=== PATIENT | male | born 1955 | race Caucasian/White ===

== ENCOUNTER 2019-06-05 08:31 | Inpatient (IN) | payer MEDICAID ==
[2019-05-31 11:40] LABS: BASOPHILS # (AUTO) 0.1 X10'3 (0-0.2); BASOPHILS % (AUTO) 0.9 % (0-1); EOSINOPHILS # (AUTO) 0.1 X10'3 (0-0.9); EOSINOPHILS % (AUTO) 1.8 % (0-6); HEMOGLOBIN 16.5 g/dl (14.0-17.9); LYMPHOCYTES # (AUTO) 1.4 X10'3 (1.1-4.8); MONOCYTES # (AUTO) 0.6 X10'3 (0-0.9)
[2019-05-31 11:42] LABS: HEMATOCRIT 47.3 % (42.0-52.0); LYMPHOCYTES % (AUTO) 24.9 % (21-51); MEAN CORPUSCULAR HEMOGLOBIN 29.7 PG (27.0-31.0); MEAN CORPUSCULAR HGB CONC 34.9 g/dL (33.0-36.5); MEAN CORPUSCULAR VOLUME 85.2 FL (78-98); MONOCYTES % (AUTO) 9.9 % (2-12); NEUTROPHILS # (AUTO) 3.5 X10'3 (1.8-7.7); NEUTROPHILS % (AUTO) 62.5 % (42-75); PLATELET COUNT 202 X10'3 (140-440); RED BLOOD COUNT 5.56 X10'6 (4.70-6.10); RED CELL DISTRIBUTION WIDTH 13.9 % (11.5-14.5); WHITE BLOOD COUNT 5.6 X10'3 (4.5-11.0)
[2019-05-31 11:50] LABS: PARTIAL THROMBOPLASTIN TIME 30 SECONDS (22-32)
[2019-05-31 12:04] LABS: ALANINE AMINOTRANSFERASE 31 U/L (12-78); ALBUMIN 3.9 G/DL (3.4-5.0); ALBUMIN/GLOBULIN RATIO 1.2 (1.1-1.5); ALKALINE PHOSPHATASE 94 IU/L (46-116); ANION GAP 9 (8-16); ASPARTATE AMINO TRANSFERASE 21 U/L (10-37); BILIRUBIN,TOTAL 0.4 MG/DL (0.1-1.0); BLOOD UREA NITROGEN 15 MG/DL (7-18); BUN/CREATININE RATIO 14.3 (5.4-32.0); CALCIUM 8.5 MG/DL (8.5-10.1); CHLORIDE 105 MMOL/L (99-107); CREATININE 1.05 MG/DL (0.60-1.10); GLUCOSE 122 MG/DL (70-104); POTASSIUM 3.9 MMOL/L (3.5-5.1); SODIUM 139 MMOL/L (135-145); TOTAL CARBON DIOXIDE 25.1 MMOL/L (24-32); TOTAL PROTEIN 7.1 G/DL (6.4-8.2); eGFR 72 ML/MIN
[~2019-06-05] VITALS: Ht 172.7 cm; Wt 81.5 kg
[2019-06-05] VITALS (14 sets, daily range): BP systolic 122–150; BP diastolic 70–101
[~2019-06-05 08:31] MED LIST: LIDOcaine 2% (20 mg/ml) 5ml cardiac syringe ONE; albumin (Human) 5% 250ml BOTTLE IV ONE; aminocaproic acid 250 MG/1 ML inj. ONE; methylPREDNISolone sod. succ. 500mg inj ONE; papaverine 30 mg/ml 2ml inj. ONE; phenylephrine 10mg/ml inj. ONE; sodium bicarbonate (8.4%) 1 mEq/ml syringe ONE
[2019-06-05] MEDS ORDERED: nitroGLYCERIN 0.4mg SUBLingual tab SL PRN (08:50)
[2019-06-05] MEDS ORDERED: LORazepam 0.5 MG tablet PO PRN (08:50)
[2019-06-05] MEDS ORDERED: diphenhydrAMINE 25mg capsule PO PRN ×2 (08:50→15:15)
[2019-06-05] MEDS ORDERED: ENAL10TA78 PO (08:53)
[2019-06-05] MEDS ORDERED: ATOR40TA PO (08:53)
[2019-06-05] MEDS ORDERED: OMEP40CA13 PO (08:53)
[2019-06-05] MEDS: normal saline 1,000 ML IV SCH ×2 (09:35→18:50)
[2019-06-05] MEDS ORDERED: LIDOcaine 1% (10mg/ml)w/preservative injection 20ml MDV ONE (10:34)
[2019-06-05] MEDS ORDERED: midazolam 2 mg/2 ml injection ONE (10:34)
[2019-06-05] MEDS ORDERED: iohexol 350MG/ML 100ml bottle IV ONE (10:34)
[2019-06-05] MEDS ORDERED: fentaNYL/PF 50MCG/1 ML 2ML syringe ONE (10:34)
[2019-06-05] MEDS ORDERED: iohexol 350 MG/ML 50ML vial IV ONE (10:34)
[2019-06-05] MEDS ORDERED: OXAZEpam 15mg capsule PO PRN (12:05)
[2019-06-05] MEDS ORDERED: acetaminophen 325mg tablet PO PRN (12:05)
[2019-06-05] MEDS ORDERED: HYDROcodone/acetaminophen 10/325mg tab PO PRN (12:05)
[2019-06-05] MEDS ORDERED: ondansetron/PF 4mg/2ml inj IV PRN ×2 (12:05→15:15)
[2019-06-05] MEDS ORDERED: HYDROcodone/acetaminophen 5mg/325mg tablet PO PRN (12:05)
[2019-06-05] MEDS ORDERED: proCHLORperazine 10 MG/2 ml inj IV PRN (12:05)
[2019-06-05] MEDS ORDERED: potassium Cl 20 mEq SR tablet PO PRN (15:15)
[2019-06-05] MEDS ORDERED: magnesium 4gm in 100ml NS 100 ML IV PRN (15:15)
[2019-06-05] MEDS ORDERED: magnesium 2GM in 50ml NS 50 ML IV PRN (15:15)
[2019-06-05] MEDS ORDERED: MESSAGE TO NURSING PO ONE (15:15)
[2019-06-05] MEDS ORDERED: potassium Cl 20mEq/100mL bag 100 ML IV PRN (15:15)
--- NOTE | 2019-06-05 15:30 | NUR ---
Patient in room MED 311. I have received report from RN from short stay and had the opportunity to ask questions and assume patient care.
[2019-06-05 16:38] LABS: CLARITY,URINE CLEAR (Clear); COLOR,URINE YELLOW (Yellow); GLUCOSE, URINE NEGATIVE (Neg); KETONES,URINE NEGATIVE (Neg); LEUKOCYTE ESTERASE ,URINE NEGATIVE (Neg); NITRITES, URINE NEGATIVE (Neg); OCCULT BLOOD,URINE NEGATIVE (Neg); PROTEIN,URINE NEGATIVE (Neg); UROBILINOGEN,URINE 0.2 E.U/dL (0.2-1.0)
[2019-06-05 16:39] LABS: UA COLLECTION TYPE NON-SPECIFIED
[2019-06-05 17:40] LABS: ALBUMIN 3.6 G/DL (3.4-5.0); ANION GAP 7 (8-16); BLOOD UREA NITROGEN 16 MG/DL (7-18); BUN/CREATININE RATIO 16.5 (5.4-32.0); CALCIUM 8.6 MG/DL (8.5-10.1); CHLORIDE 106 MMOL/L (99-107); CREATININE 0.97 MG/DL (0.60-1.10); GLUCOSE 88 MG/DL (70-104); MAGNESIUM 2.1 MG/DL (1.5-2.4); POTASSIUM 3.6 MMOL/L (3.5-5.1); SODIUM 141 MMOL/L (135-145); TOTAL CARBON DIOXIDE 27.9 MMOL/L (24-32); eGFR 78 ML/MIN
[2019-06-05 17:41] LABS: HEMATOCRIT 45.8 % (42.0-52.0); HEMOGLOBIN 15.6 g/dl (14.0-17.9); MEAN CORPUSCULAR HEMOGLOBIN 29.3 PG (27.0-31.0); MEAN PLATELET VOLUME 8.9 FL (7.4-10.4); PLATELET COUNT 188 X10'3 (140-440); RED BLOOD COUNT 5.33 X10'6 (4.70-6.10); RED CELL DISTRIBUTION WIDTH 14.3 % (11.5-14.5); WHITE BLOOD COUNT 5.8 X10'3 (4.5-11.0)
[2019-06-05 17:43] LABS: HEMOGLOBIN A1C 5.9 % (4.5-6.2)
[2019-06-05 17:44] LABS: PARTIAL THROMBOPLASTIN TIME 29 SECONDS (22-32)
[2019-06-05 18:00] LABS: ABG BASE EXCESS 1.8 mmol/L (-2.0-3.0); ABG HCO3 25.2 mmol/L (22.0-26.0); ABG PCO2 (T) 36.4 mmHg (35.0-45.0); ABG PH (T) 7.459 (7.350-7.450); ABG PO2 (T) 84.8 mmHg (83-108); ALLEN'S TEST Positive; FCOHb 0.7 % (0.5-1.5); FMetHb 0.2 % (0.3-1.12); FO2Hb 96.1 % (94-100); TOTAL HEMOGLOBIN 16.5 G/dl (14.0-17.9)
--- NOTE | 2019-06-05 18:00 | NUR ---
Patient in room MED 311. I have received report from Hetal ENRIQUEZ and had the opportunity to ask questions and assume patient care.
[2019-06-05] MEDS ORDERED: mupirocin 2% nasal ointment 1gm UD NS SCH (20:00)
[2019-06-05] MEDS: pantoprazole 40mg Tablet.DR PO SCH (22:07)
[2019-06-05] MEDS: metoprolol tartrate 12.5mg (1/2 tablet) PO SCH (22:09)
[2019-06-06 02:00] VITALS: BP 135/94
[2019-06-06] MEDS: normal saline 1,000 ML IV SCH (04:50)
[2019-06-06] MEDS ORDERED: MESSAGE TO NURSING PO ONE (05:30)
[2019-06-06 06:00] VITALS: BP 122/86
--- NOTE | 2019-06-06 06:28 | NUR ---
Problems reprioritized. Patient report given, questions answered & plan of care reviewed with Anabel Fisher .
--- NOTE | 2019-06-06 06:30 | NUR ---
Patient in room MED 311. I have received report from Jone ENRIQUEZ and had the opportunity to ask questions and assume patient care.
[2019-06-06] MEDS: lisinopril 20mg tablet PO SCH (09:29)
[2019-06-06] MEDS: metoprolol tartrate 12.5mg (1/2 tablet) PO SCH ×2 (09:29→19:03)
[2019-06-06] MEDS: atorvastatin 20mg tablet PO SCH (09:30)
[2019-06-06 11:00] VITALS: BP 134/87
[2019-06-06] MEDS ORDERED: dextrose 50%-water 50ml dispensing syringe IV PRN (13:20)
[2019-06-06] MEDS ORDERED: insulin glargine (Lantus) pen - multi-dose SQ PRN (13:20)
[2019-06-06] MEDS ORDERED: vancomycin/NS 1 GM ADD-VANTAGE 250 ML IV ONE (13:20)
[2019-06-06] MEDS ORDERED: cefazolin/dext.iso 2gm/100ml 100 ML IV ONE (13:25)
[2019-06-06 18:00] VITALS: BP 128/85
--- NOTE | 2019-06-06 18:41 | NUR ---
Patient in room MED 311. I have received report from Anabel Fisher and had the opportunity to ask questions and assume patient care.
[2019-06-06] MEDS ORDERED: ringers solution, lacted 1,000 ML IV ONE (18:57)
[2019-06-06] MEDS: pantoprazole 40mg Tablet.DR PO SCH (19:03)
[2019-06-06 22:00] VITALS: BP 126/93
[2019-06-07] VITALS (18 sets, daily range): BP systolic 92–150; BP diastolic 52–91
[2019-06-07] MEDS ORDERED: MESSAGE TO NURSING PO ONE ×3 (01:30→05:30)
[2019-06-07] MEDS ORDERED: MALTODEXTRIN/FRUCTOSE 0.68 KCAL/ML LIQUID 296ML BOTTLE PO ONE (03:30)
[2019-06-07] MEDS ORDERED: mupirocin 2% nasal ointment 1gm UD NS SCH (05:00)
[2019-06-07 05:26] LABS: BASOPHILS % (AUTO) 0.4 % (0-1); EOSINOPHILS # (AUTO) 0.2 X10'3 (0-0.9); EOSINOPHILS % (AUTO) 1.6 % (0-6); HEMATOCRIT 49.3 % (42.0-52.0); LYMPHOCYTES # (AUTO) 1.9 X10'3 (1.1-4.8); LYMPHOCYTES % (AUTO) 19.1 % (21-51); MEAN CORPUSCULAR HEMOGLOBIN 29.5 PG (27.0-31.0); MEAN CORPUSCULAR HGB CONC 34.5 g/dL (33.0-36.5); MEAN CORPUSCULAR VOLUME 85.5 FL (78-98); MEAN PLATELET VOLUME 8.6 FL (7.4-10.4); MONOCYTES # (AUTO) 1.1 X10'3 (0-0.9); NEUTROPHILS # (AUTO) 6.8 X10'3 (1.8-7.7); NEUTROPHILS % (AUTO) 67.9 % (42-75); PLATELET COUNT 198 X10'3 (140-440); RED BLOOD COUNT 5.76 X10'6 (4.70-6.10); RED CELL DISTRIBUTION WIDTH 14.2 % (11.5-14.5); WHITE BLOOD COUNT 10.1 X10'3 (4.5-11.0)
[2019-06-07] MEDS ORDERED: gabapentin 400mg capsule PO ONE (05:30)
[2019-06-07 05:38] LABS: ALBUMIN 3.9 G/DL (3.4-5.0); ANION GAP 10 (8-16); BLOOD UREA NITROGEN 16 MG/DL (7-18); BUN/CREATININE RATIO 15.2 (5.4-32.0); CALCIUM 8.8 MG/DL (8.5-10.1); CHLORIDE 105 MMOL/L (99-107); CREATININE 1.05 MG/DL (0.60-1.10); GLUCOSE 103 MG/DL (70-104); POTASSIUM 3.8 MMOL/L (3.5-5.1); SODIUM 140 MMOL/L (135-145); TOTAL CARBON DIOXIDE 24.6 MMOL/L (24-32); eGFR 72 ML/MIN
[2019-06-07] MEDS ORDERED: famotidine 10mg tablet PO ONE (06:00)
[2019-06-07] MEDS ORDERED: LORazepam 2 mg/ml vial IV ONE (06:00)
--- NOTE | 2019-06-07 06:34 | NUR ---
Patient in room MED 311. I have received report from ZOE Becerril and had the opportunity to ask questions and assume patient care.
[2019-06-07] MEDS ORDERED: ROPIVAcaine 0.5% (5mg/ml) 30ml vial ONE (06:35)
--- NOTE | 2019-06-07 06:35 | NUR ---
Problems reprioritized. Patient report given, questions answered & plan of care reviewed with Reta ENRIQUEZ.
[2019-06-07] MEDS ORDERED: midazolam 2 mg/2 ml injection ONE (06:43)
[2019-06-07] MEDS ORDERED: SUFENTANIL CITRATE 50 MCG/ML 2ml ampule IV ONE (06:43)
[2019-06-07] MEDS: lisinopril 20mg tablet PO SCH (08:00)
[2019-06-07] MEDS ORDERED: DOPamine/D5W 400mg/250ml bag IV ONE (08:00)
[2019-06-07] MEDS ORDERED: nitroGLYCERIN in D5W 50mg/250ml (Tridil) infusion IV ONE (08:00)
[2019-06-07] MEDS ORDERED: protamine sulf. 10mg/ml inj. IV ONE (08:00)
[2019-06-07] MEDS ORDERED: isoflurane 100ml inhalation liquid IH ONE (08:00)
[2019-06-07] MEDS: atorvastatin 20mg tablet PO SCH (08:00)
[2019-06-07] MEDS: metoprolol tartrate 12.5mg (1/2 tablet) PO SCH (08:00)
[2019-06-07 08:45] LABS: ABG BASE EXCESS -1.6 mmol/L (-2.0-3.0); ABG OXYGEN SATURATION 99.6 % (95-98); ABG PCO2 43.3 mmHg (35.0-45.0); ABG PH 7.361 (7.350-7.450); ABG PO2 444.8 mmHg (60.0-100.0); CL (ABG) 105 mmol/L (99-107); FCOHb 0.9 % (0.5-1.5); FMetHb 0.5 % (0.3-1.12); FO2Hb 98.2 % (94-100); GLUCOSE (ABG) 74 mg/dl (70-104); IONIZED CA (ABG) 1.15 mmol/L (1.03-1.32); NA (ABG) 139 mmol/L (135-145); TOTAL HEMOGLOBIN 16.1 G/dl (14.0-17.9)
--- NOTE | 2019-06-07 09:22 | NUR ---
Problems reprioritized. Patient report given, questions answered & plan of care reviewed with Alberta CUNNINGHAM RN.
[2019-06-07 09:50] LABS: ABG BASE EXCESS -0.7 mmol/L (-2.0-3.0); ABG HCO3 24.1 mmol/L (22.0-26.0); ABG OXYGEN SATURATION 99.4 % (95-98); ABG PCO2 40.1 mmHg (35.0-45.0); ABG PH 7.396 (7.350-7.450); ABG PO2 276.1 mmHg (60.0-100.0); CL (ABG) 102 mmol/L (99-107); FCOHb 0.8 % (0.5-1.5); FMetHb 0.3 % (0.3-1.12); FO2Hb 98.3 % (94-100); GLUCOSE (ABG) 83 mg/dl (70-104); IONIZED CA (ABG) 1.01 mmol/L (1.03-1.32); K (ABG) 5.2 mmol/L (3.3-5.1); NA (ABG) 132 mmol/L (135-145); TOTAL HEMOGLOBIN 11.9 G/dl (14.0-17.9)
[2019-06-07] MEDS ORDERED: ipratropium/albuterol 3ml nebule IH PRN (09:55)
[2019-06-07 10:00] LABS: ABG BASE EXCESS VENOUS -0.4 mmol/L; ABG HCO3 VENOUS 25.1 mmol/L; ABG PO2 VENOUS 46.4 mmHg; CL (ABG) 102 mmol/L (99-107); FCOHb VENOUS 1.3 %; FHHb VENOUS 17.5 %; FMetHb VENOUS 0.1 %; FO2Hb VENOUS 81.1 %; GLUCOSE (ABG) 88 mg/dl (70-104); IONIZED CA (ABG) 1.04 mmol/L (1.03-1.32); K (ABG) 5.5 mmol/L (3.3-5.1); NA (ABG) 133 mmol/L (135-145); TOTAL HEMOGLOBIN 12.2 G/dl (14.0-17.9)
[2019-06-07 10:16] LABS: ABG BASE EXCESS 0.4 mmol/L (-2.0-3.0); ABG HCO3 25.2 mmol/L (22.0-26.0); ABG OXYGEN SATURATION 98.9 % (95-98); ABG PCO2 41.6 mmHg (35.0-45.0); ABG PH 7.401 (7.350-7.450); ABG PO2 191.8 mmHg (60.0-100.0); CL (ABG) 102 mmol/L (99-107); FCOHb 0.6 % (0.5-1.5); FMetHb 0.6 % (0.3-1.12); FO2Hb 97.7 % (94-100); GLUCOSE (ABG) 86 mg/dl (70-104); IONIZED CA (ABG) 1.34 mmol/L (1.03-1.32); K (ABG) 5.3 mmol/L (3.3-5.1); NA (ABG) 132 mmol/L (135-145); TOTAL HEMOGLOBIN 11.8 G/dl (14.0-17.9)
[2019-06-07] MEDS ORDERED: phenylephrine 10mg/ml inj. ONE (10:31)
[2019-06-07] MEDS ORDERED: epiNEPHrine 1 mg/ml inj ONE (10:31)
[2019-06-07] MEDS ORDERED: etomidate 2mg/ml inj. ONE (10:31)
[2019-06-07] MEDS ORDERED: esmolol inj. 10 ML IV ONE (10:31)
[2019-06-07] MEDS ORDERED: LIDOcaine 2% (20mg/ml) 5ml vial ONE (10:31)
[2019-06-07] MEDS ORDERED: rocuronium 10mg/ml inj IV ONE (10:31)
[2019-06-07] MEDS ORDERED: acetaminophen 1,000mg/100ml IV 100 ML IV ONE (10:32)
[2019-06-07 10:40] LABS: ABG BASE EXCESS VENOUS -0.4 mmol/L; ABG HCO3 VENOUS 24.7 mmol/L; ABG PCO2 VENOUS 42.3 mmHg; ABG PO2 VENOUS 58.5 mmHg; CL (ABG) 101 mmol/L (99-107); FCOHb VENOUS 0.9 %; FHHb VENOUS 10.1 %; FMetHb VENOUS 0.6 %; FO2Hb VENOUS 88.4 %; GLUCOSE (ABG) 87 mg/dl (70-104); IONIZED CA (ABG) 1.21 mmol/L (1.03-1.32); K (ABG) 5.1 mmol/L (3.3-5.1); NA (ABG) 134 mmol/L (135-145); TOTAL HEMOGLOBIN 12.9 G/dl (14.0-17.9)
[2019-06-07] MEDS ORDERED: niCARDipine-NS 40mg/200ml IVPB 200 ML IV PRN (11:11)
[2019-06-07] MEDS ORDERED: nitroGLYCERIN-Tridil 50MG/D5W 250 ML IV PRN (11:11)
[2019-06-07] MEDS ORDERED: DOPamine 400mg/D5W 250ml 250 ML IV PRN (11:11)
[2019-06-07] MEDS ORDERED: sodium chloride 0.45% 1,000 ML IV SCH (11:11)
[2019-06-07] MEDS ORDERED: Neutra Phos packet PO PRN (11:15)
[2019-06-07] MEDS ORDERED: metoclopramide 5 mg/ml inj IV PRN (11:15)
[2019-06-07] MEDS ORDERED: dextrose 50%-water 50ml dispensing syringe IV PRN (11:15)
[2019-06-07] MEDS ORDERED: HYDROcodone/acetaminophen 10/325mg tab PO PRN (11:15)
[2019-06-07] MEDS ORDERED: potassium Cl 20 mEq SR tablet PO PRN (11:15)
[2019-06-07] MEDS ORDERED: acetaminophen 325mg tablet PO PRN ×2 (11:15)
[2019-06-07] MEDS ORDERED: ondansetron/PF 4mg/2ml inj IV PRN (11:15)
[2019-06-07] MEDS ORDERED: magnesium 4gm in 100ml NS 100 ML IV PRN (11:15)
[2019-06-07] MEDS ORDERED: magnesium hydroxide 30ml (MOM) UD suspension PO PRN (11:15)
[2019-06-07] MEDS ORDERED: sodium phosphate inj. 15 MMOL in dextrose 5%-water 150 ML IV PRN (11:15)
[2019-06-07] MEDS ORDERED: morphine 4 MG/ML inj SYRINge IV PRN (11:15)
[2019-06-07] MEDS ORDERED: sodium phosphate inj. 30 MMOL in dextrose 5%-water 250 ML IV PRN (11:15)
[2019-06-07] MEDS ORDERED: pantoprazole 40 MG vial IV ONE (11:15)
[2019-06-07] MEDS ORDERED: normal saline 250ml IV soln 250 ML IV PRN (11:15)
[2019-06-07] MEDS ORDERED: insulin regular, human inj. 100 UNITS in normal saline 100ml IV soln 100 ML IV SCH ×2 (11:15)
--- NOTE | 2019-06-07 11:15 | NUR ---
Received to room 2043, accompanied by MDs and surgical crew. Placed on ventilator, to inspector filter tip, arterial line and PA line pressure monitored. Chest tubes to suction at 20 cm. Caceres cath to gravity drainage. Dressings are dry and intact. See assessment record. All vasoactive drugs are infusing via central line.
[2019-06-07 11:30] LABS: ABG BASE EXCESS -0.2 mmol/L (-2.0-3.0); ABG HCO3 24.7 mmol/L (22.0-26.0); ABG OXYGEN SATURATION 98.2 % (95-98); ABG PCO2 (T) 40.9 mmHg (35.0-45.0); ABG PH (T) 7.397 (7.350-7.450); ABG PO2 (T) 127.4 mmHg (83-108); FCOHb 0.2 % (0.5-1.5); FMetHb 0.3 % (0.3-1.12); FO2Hb 97.7 % (94-100); MINUTE VOLUME 10 L/min; PATIENT TEMPERATURE 36.8; PEEP 5 cm H2O; RESPIRATORY RATE 12 b/min; TIDAL VOLUME 700 mL; TOTAL HEMOGLOBIN 15.5 G/dl (14.0-17.9)
[2019-06-07 11:47] LABS: BASOPHILS % (AUTO) 0.2 % (0-1); EOSINOPHILS # (AUTO) 0.1 X10'3 (0-0.9); HEMATOCRIT 41.6 % (42.0-52.0); HEMOGLOBIN 14.3 g/dl (14.0-17.9); LYMPHOCYTES # (AUTO) 0.8 X10'3 (1.1-4.8); LYMPHOCYTES % (AUTO) 7.4 % (21-51); MEAN CORPUSCULAR HEMOGLOBIN 29.4 PG (27.0-31.0); MEAN CORPUSCULAR HGB CONC 34.5 g/dL (33.0-36.5); MEAN CORPUSCULAR VOLUME 85.3 FL (78-98); MEAN PLATELET VOLUME 8.5 FL (7.4-10.4); MONOCYTES # (AUTO) 0.7 X10'3 (0-0.9); MONOCYTES % (AUTO) 7.1 % (2-12); NEUTROPHILS # (AUTO) 8.6 X10'3 (1.8-7.7); NEUTROPHILS % (AUTO) 84.3 % (42-75); PLATELET COUNT 144 X10'3 (140-440); RED BLOOD COUNT 4.87 X10'6 (4.70-6.10); WHITE BLOOD COUNT 10.2 X10'3 (4.5-11.0)
[2019-06-07 12:05] LABS: ALANINE AMINOTRANSFERASE 26 U/L (12-78); ALBUMIN 3.2 G/DL (3.4-5.0); ALBUMIN/GLOBULIN RATIO 1.5 (1.1-1.5); ALKALINE PHOSPHATASE 71 IU/L (46-116); ANION GAP 6 (8-16); ASPARTATE AMINO TRANSFERASE 22 U/L (10-37); BILIRUBIN,TOTAL 1.2 MG/DL (0.1-1.0); BLOOD UREA NITROGEN 13 MG/DL (7-18); BUN/CREATININE RATIO 10.1 (5.4-32.0); CALCIUM 8.6 MG/DL (8.5-10.1); CHLORIDE 106 MMOL/L (99-107); CREATININE 1.29 MG/DL (0.60-1.10); GLUCOSE 114 MG/DL (70-104); MAGNESIUM 3.3 MG/DL (1.5-2.4); PHOSPHORUS 2.3 MG/DL (2.3-4.5); POTASSIUM 4.9 MMOL/L (3.5-5.1); SODIUM 138 MMOL/L (135-145); TOTAL CARBON DIOXIDE 25.9 MMOL/L (24-32); TOTAL PROTEIN 5.3 G/DL (6.4-8.2); eGFR 56 ML/MIN
--- NOTE | 2019-06-07 12:20 | NUR ---
Nutrition consult: Pt s/p CABG x 2 today. Pt would benefit from nutrition therapy education once stable prior to discharge. Will continue to follow. Addendum: 06/07/19 at [address] Amended: Links added.
[2019-06-07] MEDS: gabapentin 300mg capsule PO SCH ×2 (12:23→20:50)
[2019-06-07] MEDS: insulin regular, human 100 UNIT in normal saline 100ml IV soln 100 ML IV SCH ×4 (12:26→22:39)
[2019-06-07 12:31] LABS: PARTIAL THROMBOPLASTIN TIME 29 SECONDS (22-32)
[2019-06-07] MEDS: insulin Lispro (HumaLOG) vial - multi-dose SQ SCH ×2 (13:00→18:00)
[2019-06-07] MEDS: albumin (Human) 5% 250ml 250 ML IV PRN ×4 (13:22→15:37)
--- NOTE | 2019-06-07 15:30 | NUR ---
Carlos MACKEY at bedside and aware of low blood pressures and that patient has already had 3 Albumin. SBP has been in the low 100s and upper 90s and will occasionally drop to the 80s. Per Carlos MACKEY, orders to give one more Albumin (Total of 4) and if necessary, to start Levophed gtt per protocol to keep SBP >100. CI has been >3.[address] output at 150ml.
[2019-06-07] MEDS: ceFAZolin 1GM/D5W- ADD-VANTAGE 50 ML IV SCH (16:12)
[2019-06-07 17:35] LABS: BASOPHILS % (AUTO) 0.1 % (0-1); EOSINOPHILS % (AUTO) 0 % (0-6); HEMOGLOBIN 13.3 g/dl (14.0-17.9); LYMPHOCYTES # (AUTO) 0.4 X10'3 (1.1-4.8); LYMPHOCYTES % (AUTO) 3.1 % (21-51); MEAN CORPUSCULAR HEMOGLOBIN 29.3 PG (27.0-31.0); MEAN PLATELET VOLUME 8.8 FL (7.4-10.4); MONOCYTES # (AUTO) 0.6 X10'3 (0-0.9); MONOCYTES % (AUTO) 4.4 % (2-12); NEUTROPHILS # (AUTO) 12.3 X10'3 (1.8-7.7); NEUTROPHILS % (AUTO) 92.4 % (42-75); PLATELET COUNT 152 X10'3 (140-440); RED BLOOD COUNT 4.53 X10'6 (4.70-6.10); RED CELL DISTRIBUTION WIDTH 13.7 % (11.5-14.5); WHITE BLOOD COUNT 13.3 X10'3 (4.5-11.0)
[2019-06-07 17:47] LABS: ANION GAP 11 (8-16); BLOOD UREA NITROGEN 16 MG/DL (7-18); BUN/CREATININE RATIO 9.6 (5.4-32.0); CALCIUM 7.9 MG/DL (8.5-10.1); CHLORIDE 108 MMOL/L (99-107); CREATININE 1.67 MG/DL (0.60-1.10); GLUCOSE 147 MG/DL (70-104); MAGNESIUM 2.5 MG/DL (1.5-2.4); PHOSPHORUS 3.1 MG/DL (2.3-4.5); POTASSIUM 3.8 MMOL/L (3.5-5.1); SODIUM 142 MMOL/L (135-145); TOTAL CARBON DIOXIDE 23.4 MMOL/L (24-32); eGFR 42 ML/MIN
[2019-06-07] MEDS: potassium Cl 20mEq/100mL bag 100 ML IV PRN ×2 (17:57→19:34)
[2019-06-07] MEDS ORDERED: NORepinephrine 8mg/ 250ml NS 250 ML IV PRN (18:25)
--- NOTE | 2019-06-07 18:36 | NUR ---
Problems reprioritized. Patient report given, questions answered & plan of care reviewed with Carmen ENRIQUEZ.
--- NOTE | 2019-06-07 18:45 | NUR ---
184..Patient in room ICU 2043. I have received report from Bronwyn ENRIQUEZ and had the opportunity to ask questions and assume patient care.
[2019-06-07] MEDS: morphine 4 MG/ML inj SYRINge IV PRN ×2 (19:33→22:07)
[2019-06-07] MEDS: mupirocin 2% nasal ointment 1gm UD NS SCH (19:33)
[2019-06-07] MEDS: docusate sod 100mg capsule PO SCH (19:34)
[2019-06-07] MEDS ORDERED: vancomycin/NS 1 GM ADD-VANTAGE 250 ML IV SCH (20:00)
--- NOTE | 2019-06-07 21:15 | NUR ---
2000..Assessment as noted, morphine given for pain appears to be effective. Continues to fail SBT, slowly wean vent at this time.
--- NOTE | 2019-06-07 22:22 | NUR ---
2215..Medicated for complaints of pain with morphine, with good effect, ntg increased for increased bp, with good effect.
[2019-06-08] VITALS (27 sets, daily range): BP systolic 115–143; BP diastolic 56–90
[2019-06-08] MEDS: ceFAZolin 1GM/D5W- ADD-VANTAGE 50 ML IV SCH ×3 (00:06→15:42)
--- NOTE | 2019-06-08 00:18 | NUR ---
0000..Vent changed to spontaneous, no other changes noted.
[2019-06-08 01:15] LABS: ABG BASE EXCESS -0.6 mmol/L (-2.0-3.0); ABG HCO3 20.8 mmol/L (22.0-26.0); ABG OXYGEN SATURATION 97.6 % (95-98); ABG PCO2 (T) 26.4 mmHg (35.0-45.0); ABG PH (T) 7.514 (7.350-7.450); ABG PO2 (T) 92.7 mmHg (83-108); FCOHb 0.5 % (0.5-1.5); FMetHb 0.2 % (0.3-1.12); FO2Hb 96.9 % (94-100); MINUTE VOLUME 20 L/min; PATIENT TEMPERATURE 37.3; PEEP 5 cm H2O; RESPIRATORY RATE (OBSERVED) 16 b/min; TOTAL HEMOGLOBIN 13.6 G/dl (14.0-17.9)
[2019-06-08] MEDS: HYDROcodone/acetaminophen 10/325mg tab PO PRN ×2 (01:44→08:47)
--- NOTE | 2019-06-08 02:28 | NUR ---
0115..Passed weaning parameters, extubated to 4l nasal cannula, no wheezing or stridor noted, tolerated well.
[2019-06-08 03:30] LABS: BASOPHILS % (AUTO) 0.2 % (0-1); EOSINOPHILS % (AUTO) 0 % (0-6); HEMATOCRIT 36.8 % (42.0-52.0); HEMOGLOBIN 12.6 g/dl (14.0-17.9); LYMPHOCYTES # (AUTO) 0.5 X10'3 (1.1-4.8); LYMPHOCYTES % (AUTO) 3.2 % (21-51); MEAN CORPUSCULAR HEMOGLOBIN 29.8 PG (27.0-31.0); MEAN CORPUSCULAR HGB CONC 34.2 g/dL (33.0-36.5); MEAN CORPUSCULAR VOLUME 87.2 FL (78-98); MEAN PLATELET VOLUME 9.3 FL (7.4-10.4); MONOCYTES # (AUTO) 1.2 X10'3 (0-0.9); MONOCYTES % (AUTO) 7.8 % (2-12); NEUTROPHILS # (AUTO) 14.1 X10'3 (1.8-7.7); NEUTROPHILS % (AUTO) 88.8 % (42-75); PLATELET COUNT 137 X10'3 (140-440); RED BLOOD COUNT 4.22 X10'6 (4.70-6.10); WHITE BLOOD COUNT 15.8 X10'3 (4.5-11.0)
[2019-06-08 03:43] LABS: ALANINE AMINOTRANSFERASE 23 U/L (12-78); ALBUMIN 3.8 G/DL (3.4-5.0); ALBUMIN/GLOBULIN RATIO 1.9 (1.1-1.5); ALKALINE PHOSPHATASE 59 IU/L (46-116); ANION GAP 10 (8-16); ASPARTATE AMINO TRANSFERASE 27 U/L (10-37); BILIRUBIN,TOTAL 0.7 MG/DL (0.1-1.0); BLOOD UREA NITROGEN 18 MG/DL (7-18); BUN/CREATININE RATIO 13.4 (5.4-32.0); CHLORIDE 109 MMOL/L (99-107); CREATININE 1.34 MG/DL (0.60-1.10); GLUCOSE 140 MG/DL (70-104); PHOSPHORUS 2.8 MG/DL (2.3-4.5); SODIUM 142 MMOL/L (135-145); TOTAL CARBON DIOXIDE 22.9 MMOL/L (24-32); TOTAL PROTEIN 5.8 G/DL (6.4-8.2); eGFR 54 ML/MIN
[2019-06-08 03:44] LABS: PARTIAL THROMBOPLASTIN TIME 27 SECONDS (22-32)
[2019-06-08] MEDS: potassium Cl 20mEq/100mL bag 100 ML IV PRN ×2 (04:26→06:33)
[2019-06-08] MEDS: magnesium 2GM in 50ml NS 50 ML IV PRN ×2 (04:26→13:08)
--- NOTE | 2019-06-08 04:31 | NUR ---
0400..Resting quietly,eyes closed,resp easy and nonlabored, no changes noted.
--- NOTE | 2019-06-08 06:36 | NUR ---
0635..Problems reprioritized. Patient report given, questions answered & plan of care reviewed with Francisco J ENRIQUEZ.
--- NOTE | 2019-06-08 06:37 | NUR ---
Patient in room ICU 2043. I have received report from Any ENRIQUEZ and had the opportunity to ask questions and assume patient care.
[2019-06-08] MEDS ORDERED: VANCOMYCIN 1gm/H2O 200ml PB 200 ML IV SCH (08:00)
[2019-06-08] MEDS ORDERED: metoprolol tartrate 12.5mg (1/2 tablet) PO SCH (08:00)
[2019-06-08] MEDS: VANCOMYCIN 1gm/H2O 200ml PB 200 ML IV SCH ×2 (08:00→20:50)
[2019-06-08] MEDS: mupirocin 2% nasal ointment 1gm UD NS SCH ×2 (08:44→20:51)
[2019-06-08] MEDS: gabapentin 300mg capsule PO SCH ×3 (08:45→20:51)
[2019-06-08] MEDS: docusate sod 100mg capsule PO SCH ×2 (08:45→20:51)
[2019-06-08] MEDS: aspirin 325mg tablet, delayed-release (Ecotrin) PO SCH (08:47)
[2019-06-08] MEDS: atorvastatin 10mg tablet PO SCH (08:47)
[2019-06-08] MEDS: insulin Lispro (HumaLOG) vial - multi-dose SQ SCH ×3 (09:00→18:00)
[2019-06-08] MEDS ORDERED: metoprolol tartrate 25mg tablet PO ONE (09:25)
[2019-06-08 09:40] LABS: MAGNESIUM 2.3 MG/DL (1.5-2.4); POTASSIUM 4.3 MMOL/L (3.5-5.1)
--- NOTE | 2019-06-08 18:21 | NUR ---
Problems reprioritized. Patient report given, questions answered & plan of care reviewed with Nayana ENRIQUEZ.
--- NOTE | 2019-06-08 18:30 | NUR ---
Patient in room ICU 2043. I have received report from ZOE Arnett and had the opportunity to ask questions and assume patient care.
--- NOTE | 2019-06-08 19:00 | NUR ---
Pt ambulated approx 200 ft around unit with standby assistance and oxygenation of 2 LPM via NC.
[2019-06-08] MEDS: lisinopril 10 MG tablet PO SCH (20:51)
[2019-06-08] MEDS: metoprolol tartrate 50mg tablet PO SCH (20:52)
[2019-06-08 21:51] LABS: MAGNESIUM 2.6 MG/DL (1.5-2.4); POTASSIUM 4.6 MMOL/L (3.5-5.1)
[2019-06-09] VITALS (17 sets, daily range): BP systolic 105–129; BP diastolic 65–89
[2019-06-09] MEDS: ceFAZolin 1GM/D5W- ADD-VANTAGE 50 ML IV SCH (00:45)
[2019-06-09 03:07] LABS: BASOPHILS % (AUTO) 0 % (0-1); EOSINOPHILS % (AUTO) 0 % (0-6); HEMATOCRIT 38.8 % (42.0-52.0); HEMOGLOBIN 13.2 g/dl (14.0-17.9); LYMPHOCYTES # (AUTO) 0.8 X10'3 (1.1-4.8); LYMPHOCYTES % (AUTO) 4.2 % (21-51); MEAN CORPUSCULAR HEMOGLOBIN 29.6 PG (27.0-31.0); MEAN PLATELET VOLUME 9.2 FL (7.4-10.4); MONOCYTES # (AUTO) 1.7 X10'3 (0-0.9); MONOCYTES % (AUTO) 9.3 % (2-12); NEUTROPHILS # (AUTO) 16.1 X10'3 (1.8-7.7); NEUTROPHILS % (AUTO) 86.5 % (42-75); PLATELET COUNT 143 X10'3 (140-440); RED BLOOD COUNT 4.46 X10'6 (4.70-6.10); RED CELL DISTRIBUTION WIDTH 14.2 % (11.5-14.5); WHITE BLOOD COUNT 18.6 X10'3 (4.5-11.0)
[2019-06-09 03:18] LABS: ALBUMIN 3.8 G/DL (3.4-5.0); ANION GAP 3 (8-16); BLOOD UREA NITROGEN 20 MG/DL (7-18); BUN/CREATININE RATIO 20.4 (5.4-32.0); CALCIUM 8.4 MG/DL (8.5-10.1); CHLORIDE 105 MMOL/L (99-107); CREATININE 0.98 MG/DL (0.60-1.10); GLUCOSE 123 MG/DL (70-104); MAGNESIUM 2.5 MG/DL (1.5-2.4); PHOSPHORUS 3.1 MG/DL (2.3-4.5); POTASSIUM 4.8 MMOL/L (3.5-5.1); SODIUM 138 MMOL/L (135-145); TOTAL CARBON DIOXIDE 30.3 MMOL/L (24-32); eGFR 78 ML/MIN
--- NOTE | 2019-06-09 06:40 | NUR ---
Problems reprioritized. Patient report given, questions answered & plan of care reviewed with ZOE Shaw.
--- NOTE | 2019-06-09 06:51 | NUR ---
Patient in room ICU 2043. I have received report from ZOE GARCIA and had the opportunity to ask questions and assume patient care.
[2019-06-09] MEDS: mupirocin 2% nasal ointment 1gm UD NS SCH (07:22)
[2019-06-09] MEDS: docusate sod 100mg capsule PO SCH ×2 (07:22→19:17)
[2019-06-09] MEDS: aspirin 325mg tablet, delayed-release (Ecotrin) PO SCH (07:22)
[2019-06-09] MEDS: gabapentin 300mg capsule PO SCH (07:23)
[2019-06-09] MEDS: pantoprazole 40mg Tablet.DR PO SCH (07:23)
[2019-06-09] MEDS: metoprolol tartrate 50mg tablet PO SCH ×2 (07:23→19:18)
[2019-06-09] MEDS: atorvastatin 10mg tablet PO SCH (07:23)
[2019-06-09] MEDS: insulin regular, human 100 UNIT in normal saline 100ml IV soln 100 ML IV SCH ×2 (07:26)
[2019-06-09] MEDS: insulin Lispro (HumaLOG) vial - multi-dose SQ SCH (09:00)
[2019-06-09] MEDS ORDERED: magnesium 2GM in 50ml NS 50 ML IV PRN (09:30)
[2019-06-09] MEDS ORDERED: potassium Cl 20mEq/100mL bag 100 ML IV PRN (09:30)
[2019-06-09] MEDS ORDERED: magnesium 4gm in 100ml NS 100 ML IV PRN (09:30)
[2019-06-09] MEDS ORDERED: potassium Cl 20 mEq SR tablet PO PRN (09:30)
--- NOTE | 2019-06-09 09:47 | NUR ---
MIRACLE PEDERSEN PA IN TO SEE PT. HE REMOVED CHEST TUBE. PER MIRACLE GARAY D/C'D NO COMPLICATIONS NOTED.
--- NOTE | 2019-06-09 11:34 | NUR ---
RIGHT IJ REMOVED, PRESSURE DRESSING APPLIED. CANULA INTACT
--- NOTE | 2019-06-09 11:55 | NUR ---
CALLED REPORT TO ZOE TYLER IN [facility]
--- NOTE | 2019-06-09 11:57 | NUR ---
Patient going to room 316. I have received report from ZOE Shaw and had the opportunity to ask questions and assume patient care.
--- NOTE | 2019-06-09 12:15 | NUR ---
PT TRANSFERRED TO [facility] IN STABLE CONDITION ROOM 316. ALL BELONGINGS SENT WITH PT. NAYELI ENRIQUEZ ASSUMING CARE OF PT.
--- NOTE | 2019-06-09 12:37 | NUR ---
CABG Consult: Pt seen by RD for written/verbal CABG/HH diet eds w/ RD contact information and HH alternative food write-in list provided. Pt post-op day 2 s/p CABG PO 25-50% avg meals. Pt reports constipation post-op LBM 12/11 receiving colace, MoM, and reglan PRN. Pt declined power pudding today but was agreeable to strawberry honduran yogurt w/ dinner tonight. Dietary notified. Current wt +4kg bed scale likely error given -4L fluid balance w/ CT 530ml output yesterday noted. Will continue to monitor for additional protein needs post-op. Rec: 1. continue heart healthy/NCS diet per MD 2. strawberry honduran yogurt w/ dinner tonight 3. routine bowel care 4. wt per rx Addendum: 06/09/19 at [address] Amended: Links added.
--- NOTE | 2019-06-09 18:20 | NUR ---
Problems reprioritized. Patient report given, questions answered & plan of care reviewed with ZOE Mccoy.
[2019-06-09] MEDS: magnesium Cl slow-release 64mg tablet PO SCH (19:12)
[2019-06-09] MEDS: potassium Cl 20 mEq SR tablet PO SCH (19:13)
[2019-06-09] MEDS: lisinopril 10 MG tablet PO SCH (19:19)
[2019-06-10 02:00] VITALS: BP 102/73
[2019-06-10 05:21] LABS: ACTIVATED CLOTTING TIME 112 SEC (101-148)
[2019-06-10 05:21] LABS: ACT @ 1.70 U 278 SEC (193-297); ACT @ 2.84 U 386 SEC (260-420); BASELINE ACT 140 SEC (101-148); PATIENT WEIGHT 89.0k KG
[2019-06-10 05:55] LABS: BASOPHILS % (AUTO) 0.2 % (0-1); EOSINOPHILS # (AUTO) 0.1 X10'3 (0-0.9); EOSINOPHILS % (AUTO) 0.6 % (0-6); HEMATOCRIT 42.5 % (42.0-52.0); HEMOGLOBIN 14.5 g/dl (14.0-17.9); LYMPHOCYTES # (AUTO) 1.7 X10'3 (1.1-4.8); LYMPHOCYTES % (AUTO) 16.2 % (21-51); MEAN CORPUSCULAR HEMOGLOBIN 29.8 PG (27.0-31.0); MEAN CORPUSCULAR HGB CONC 34.2 g/dL (33.0-36.5); MEAN PLATELET VOLUME 9.2 FL (7.4-10.4); MONOCYTES # (AUTO) 1.4 X10'3 (0-0.9); MONOCYTES % (AUTO) 13.1 % (2-12); NEUTROPHILS # (AUTO) 7.4 X10'3 (1.8-7.7); NEUTROPHILS % (AUTO) 69.9 % (42-75); PLATELET COUNT 138 X10'3 (140-440); RED BLOOD COUNT 4.89 X10'6 (4.70-6.10); RED CELL DISTRIBUTION WIDTH 14.1 % (11.5-14.5); WHITE BLOOD COUNT 10.6 X10'3 (4.5-11.0)
[2019-06-10 06:00] VITALS: BP 119/78
[2019-06-10 06:04] LABS: ALBUMIN 3.6 G/DL (3.4-5.0); ANION GAP 5 (8-16); BLOOD UREA NITROGEN 27 MG/DL (7-18); BUN/CREATININE RATIO 26.7 (5.4-32.0); CALCIUM 8.7 MG/DL (8.5-10.1); CHLORIDE 103 MMOL/L (99-107); CREATININE 1.01 MG/DL (0.60-1.10); GLUCOSE 96 MG/DL (70-104); POTASSIUM 4.4 MMOL/L (3.5-5.1); SODIUM 137 MMOL/L (135-145); TOTAL CARBON DIOXIDE 29.4 MMOL/L (24-32); eGFR 75 ML/MIN
--- NOTE | 2019-06-10 06:30 | NUR ---
Patient in room MED 316. I have received report from Yumiko ENRIQUEZ and had the opportunity to ask questions and assume patient care.
--- NOTE | 2019-06-10 06:35 | NUR ---
Problems reprioritized. Patient report given, questions answered & plan of care reviewed with Anabel WOOD.
[2019-06-10] MEDS ORDERED: magnesium citrate 296ml oral solution PO ONE (07:15)
[2019-06-10] MEDS ORDERED: DOCU100C40 PO (07:17)
[2019-06-10] MEDS ORDERED: ASPI-845 PO (07:17)
[2019-06-10] MEDS ORDERED: HYDR-4353 PO (07:17)
[2019-06-10] MEDS ORDERED: METO50TA16 PO (07:17)
[2019-06-10] MEDS: pantoprazole 40mg Tablet.DR PO SCH (07:24)
[2019-06-10] MEDS: docusate sod 100mg capsule PO SCH ×2 (08:54→20:00)
[2019-06-10] MEDS: magnesium Cl slow-release 64mg tablet PO SCH ×2 (08:56→20:10)
[2019-06-10] MEDS: atorvastatin 10mg tablet PO SCH (08:57)
[2019-06-10] MEDS: metoprolol tartrate 50mg tablet PO SCH ×2 (08:57→20:12)
[2019-06-10] MEDS: aspirin 325mg tablet, delayed-release (Ecotrin) PO SCH (08:57)
[2019-06-10] MEDS: potassium Cl 20 mEq SR tablet PO SCH ×2 (09:14→20:10)
[2019-06-10 11:00] VITALS: BP 100/68
[2019-06-10 18:00] VITALS: BP 111/52
--- NOTE | 2019-06-10 18:15 | NUR ---
Patient in room MED 316. I have received report from ZEO Little and had the opportunity to ask questions and assume patient care.
--- NOTE | 2019-06-10 18:34 | NUR ---
Problems reprioritized. Patient report given, questions answered & plan of care reviewed with Trang ENRIQUEZ.
[2019-06-10] MEDS: lisinopril 10 MG tablet PO SCH (21:00)
[2019-06-10 22:00] VITALS: BP 96/64
[2019-06-11] VITALS (23 sets, daily range): BP systolic 72–115; BP diastolic 47–73
[2019-06-11 06:27] LABS: BASOPHILS % (AUTO) 0.4 % (0-1); EOSINOPHILS # (AUTO) 0.1 X10'3 (0-0.9); EOSINOPHILS % (AUTO) 1.5 % (0-6); HEMATOCRIT 43.8 % (42.0-52.0); HEMOGLOBIN 15.1 g/dl (14.0-17.9); LYMPHOCYTES # (AUTO) 1.6 X10'3 (1.1-4.8); LYMPHOCYTES % (AUTO) 15.8 % (21-51); MEAN CORPUSCULAR HEMOGLOBIN 29.9 PG (27.0-31.0); MEAN CORPUSCULAR HGB CONC 34.5 g/dL (33.0-36.5); MEAN CORPUSCULAR VOLUME 86.6 FL (78-98); MEAN PLATELET VOLUME 9.3 FL (7.4-10.4); MONOCYTES # (AUTO) 1.3 X10'3 (0-0.9); NEUTROPHILS # (AUTO) 6.9 X10'3 (1.8-7.7); NEUTROPHILS % (AUTO) 69.3 % (42-75); PLATELET COUNT 183 X10'3 (140-440); RED BLOOD COUNT 5.05 X10'6 (4.70-6.10); RED CELL DISTRIBUTION WIDTH 14.2 % (11.5-14.5); WHITE BLOOD COUNT 9.9 X10'3 (4.5-11.0)
[2019-06-11 06:38] LABS: ALBUMIN 3.4 G/DL (3.4-5.0); ANION GAP 8 (8-16); BLOOD UREA NITROGEN 25 MG/DL (7-18); BUN/CREATININE RATIO 24.3 (5.4-32.0); CALCIUM 8.4 MG/DL (8.5-10.1); CHLORIDE 104 MMOL/L (99-107); CREATININE 1.03 MG/DL (0.60-1.10); GLUCOSE 109 MG/DL (70-104); MAGNESIUM 2.6 MG/DL (1.5-2.4); POTASSIUM 4.3 MMOL/L (3.5-5.1); SODIUM 137 MMOL/L (135-145); TOTAL CARBON DIOXIDE 25.2 MMOL/L (24-32); eGFR 73 ML/MIN
[2019-06-11] MEDS: pantoprazole 40mg Tablet.DR PO SCH (07:30)
[2019-06-11] MEDS: potassium Cl 20 mEq SR tablet PO SCH ×2 (08:00→20:45)
[2019-06-11] MEDS: magnesium Cl slow-release 64mg tablet PO SCH ×2 (08:00→20:00)
[2019-06-11] MEDS: docusate sod 100mg capsule PO SCH ×2 (08:48→20:00)
[2019-06-11] MEDS: atorvastatin 10mg tablet PO SCH (08:48)
[2019-06-11] MEDS: aspirin 325mg tablet, delayed-release (Ecotrin) PO SCH (08:48)
[2019-06-11] MEDS: metoprolol tartrate 50mg tablet PO SCH ×2 (08:51→20:00)
--- NOTE | 2019-06-11 10:00 | NUR ---
Upon beginning to discharge patient I noticed that he was respirating greater than 30. He was complaining of SOB and dizzyness. I called for the charge nurse. Patient was also diaphoretic. A rapid was called.
[2019-06-11] MEDS ORDERED: amiodarone 150mg/dext, iso-os 100 ML IV ONE (10:15)
--- NOTE | 2019-06-11 10:15 | NUR ---
Rapid response was called, ICU nurse, ZOE Mayo came up to the floor, along with other members of the rapid response team. Patient was found to be in A-fib with RVR and was symptomatic. Patient was c/o of dizzyness, he was diaphoretic and respirating 30 RR/minute. My charge nurse ZOE Arzola contacted Carlos Dawkins who order that the patient recieve a bolus of Amiodarone. This order was put into the system. Patient was also given a bolus of 250 cc fluid due to low blood pressures. Dr. Pickett and Carlos Dawkins arrived to the floor and decided to perform cardioversion. Myself and ZOE Arzola were also present in the room during this procedure. Patient's also present at the beginning of procedure but excused herself prior to the cardioversion after explanation was given to the patient and his . Verbal consent given by patient. Patient received Fentanyl, and Morphine and was then cardioverted. The patient went back into sinus rhythm with this treatment. HR was at 107. Will continue to monitor patient.
[2019-06-11] MEDS ORDERED: amiodarone/D5 360MG/200ML BAG 200 ML IV SCH (10:40)
[2019-06-11] MEDS: amiodarone/D5 360MG/200ML BAG 200 ML IV SCH ×2 (11:04→15:56)
[2019-06-11] MEDS ORDERED: MIDAZolam 5mg/ml 2ml vial IV ONE (11:05)
[2019-06-11] MEDS: normal saline 1000ml 1,000 ML IV SCH ×4 (11:05→22:40)
[2019-06-11] MEDS: morphine 2 MG/ML inj. syringe IV SCH (11:11)
--- NOTE | 2019-06-11 18:02 | NUR ---
Problems reprioritized. Patient report given, questions answered & plan of care reviewed with ZOE Lundberg.
--- NOTE | 2019-06-11 18:25 | NUR ---
Patient in room MED 316. I have received report from ZOE Lopez and had the opportunity to ask questions and assume patient care.
[2019-06-11] MEDS: lisinopril 10 MG tablet PO SCH (21:00)
[2019-06-12 02:00] VITALS: BP 115/77
[2019-06-12] MEDS: normal saline 1000ml 1,000 ML IV SCH ×6 (02:40→22:40)
[2019-06-12] MEDS: amiodarone/D5 360MG/200ML BAG 200 ML IV SCH (03:01)
[2019-06-12 06:00] VITALS: BP 101/69
--- NOTE | 2019-06-12 06:27 | NUR ---
Problems reprioritized. Patient report given, questions answered & plan of care reviewed with ZOE Mcduffie.
[2019-06-12 06:36] LABS: BASOPHILS % (AUTO) 0.4 % (0-1); EOSINOPHILS # (AUTO) 0.3 X10'3 (0-0.9); EOSINOPHILS % (AUTO) 3.3 % (0-6); HEMATOCRIT 44.1 % (42.0-52.0); HEMOGLOBIN 15.3 g/dl (14.0-17.9); LYMPHOCYTES # (AUTO) 1.6 X10'3 (1.1-4.8); LYMPHOCYTES % (AUTO) 16.6 % (21-51); MEAN CORPUSCULAR HEMOGLOBIN 29.9 PG (27.0-31.0); MEAN CORPUSCULAR HGB CONC 34.6 g/dL (33.0-36.5); MEAN CORPUSCULAR VOLUME 86.6 FL (78-98); MEAN PLATELET VOLUME 9.1 FL (7.4-10.4); MONOCYTES # (AUTO) 1.1 X10'3 (0-0.9); MONOCYTES % (AUTO) 11.3 % (2-12); NEUTROPHILS # (AUTO) 6.4 X10'3 (1.8-7.7); NEUTROPHILS % (AUTO) 68.4 % (42-75); PLATELET COUNT 186 X10'3 (140-440); RED BLOOD COUNT 5.09 X10'6 (4.70-6.10); WHITE BLOOD COUNT 9.4 X10'3 (4.5-11.0)
[2019-06-12 06:45] LABS: ALBUMIN 3.2 G/DL (3.4-5.0); ANION GAP 11 (8-16); BLOOD UREA NITROGEN 24 MG/DL (7-18); BUN/CREATININE RATIO 25.8 (5.4-32.0); CALCIUM 8.6 MG/DL (8.5-10.1); CHLORIDE 106 MMOL/L (99-107); CREATININE 0.93 MG/DL (0.60-1.10); GLUCOSE 106 MG/DL (70-104); POTASSIUM 4.3 MMOL/L (3.5-5.1); SODIUM 140 MMOL/L (135-145); TOTAL CARBON DIOXIDE 22.7 MMOL/L (24-32); eGFR 82 ML/MIN
--- NOTE | 2019-06-12 06:49 | NUR ---
Patient in room MED 316. I have received report from ZOE Colvin and had the opportunity to ask questions and assume patient care.
[2019-06-12] MEDS: pantoprazole 40mg Tablet.DR PO SCH (07:30)
[2019-06-12] MEDS: atorvastatin 10mg tablet PO SCH (08:57)
[2019-06-12] MEDS: docusate sod 100mg capsule PO SCH ×2 (08:57→21:00)
[2019-06-12] MEDS: aspirin 325mg tablet, delayed-release (Ecotrin) PO SCH (08:57)
[2019-06-12] MEDS: metoprolol tartrate 50mg tablet PO SCH ×2 (08:58→20:00)
[2019-06-12] MEDS: potassium Cl 20 mEq SR tablet PO SCH ×2 (09:01→21:00)
[2019-06-12 10:45] LABS: MAGNESIUM 2.2 MG/DL (1.5-2.4)
[2019-06-12] MEDS: amiodarone 200mg tablet PO SCH ×2 (10:52→21:00)
[2019-06-12] MEDS: magnesium Cl slow-release 64mg tablet PO SCH ×2 (10:52→21:00)
[2019-06-12 11:00] VITALS: BP 114/80
[2019-06-12] MEDS: morphine 2 MG/ML inj. syringe IV SCH (11:05)
[2019-06-12 15:00] VITALS: BP 111/76
[2019-06-12 18:00] VITALS: BP 96/71
--- NOTE | 2019-06-12 18:20 | NUR ---
Patient in room MED 316. I have received report from ZOE Mcduffie and had the opportunity to ask questions and assume patient care.
[2019-06-12] MEDS: lisinopril 10 MG tablet PO SCH (21:00)
[2019-06-12 22:00] VITALS: BP 122/79
[2019-06-13] VITALS (12 sets, daily range): BP systolic 92–118; BP diastolic 59–80
[2019-06-13] MEDS: normal saline 1000ml 1,000 ML IV SCH ×2 (02:40→06:40)
--- NOTE | 2019-06-13 06:44 | NUR ---
Problems reprioritized. Patient report given, questions answered & plan of care reviewed with ZOE Arzola.
[2019-06-13 07:10] LABS: ALBUMIN 3.1 G/DL (3.4-5.0); ANION GAP 8 (8-16); BLOOD UREA NITROGEN 23 MG/DL (7-18); BUN/CREATININE RATIO 23.2 (5.4-32.0); CALCIUM 8.5 MG/DL (8.5-10.1); CHLORIDE 105 MMOL/L (99-107); CREATININE 0.99 MG/DL (0.60-1.10); GLUCOSE 104 MG/DL (70-104); POTASSIUM 4.3 MMOL/L (3.5-5.1); SODIUM 135 MMOL/L (135-145); TOTAL CARBON DIOXIDE 21.6 MMOL/L (24-32); eGFR 77 ML/MIN
[2019-06-13] MEDS: atorvastatin 10mg tablet PO SCH (07:23)
[2019-06-13] MEDS: aspirin 325mg tablet, delayed-release (Ecotrin) PO SCH (07:24)
[2019-06-13] MEDS: potassium Cl 20 mEq SR tablet PO SCH ×2 (07:24→21:50)
[2019-06-13] MEDS: docusate sod 100mg capsule PO SCH ×2 (07:24→21:50)
[2019-06-13] MEDS: amiodarone 200mg tablet PO SCH ×2 (07:24→21:48)
[2019-06-13] MEDS: metoprolol tartrate 50mg tablet PO SCH ×2 (07:24→21:51)
[2019-06-13] MEDS: pantoprazole 40mg Tablet.DR PO SCH (07:24)
[2019-06-13] MEDS: magnesium Cl slow-release 64mg tablet PO SCH ×2 (07:24→21:48)
--- NOTE | 2019-06-13 07:45 | NUR ---
PATIENT AFIB 150S CALLED [facility]- ORDER FOR AMIO BOLUS. WILL CONTINUE TO MONITOR. PATIENT IN BED, OTHER VITALS ARE STABLE.
[2019-06-13] MEDS ORDERED: amiodarone 150mg/dext, iso-os 100 ML IV ONE (08:25)
[2019-06-13] MEDS: amiodarone/D5 360MG/200ML BAG 200 ML IV SCH ×2 (10:57→17:04)
[2019-06-13] MEDS: lisinopril 10 MG tablet PO SCH (21:50)
[2019-06-14] VITALS (7 sets, daily range): BP systolic 103–111; BP diastolic 69–78
[2019-06-14] MEDS: amiodarone/D5 360MG/200ML BAG 200 ML IV SCH (04:51)
[2019-06-14 06:43] LABS: ANION GAP 9 (8-16); BLOOD UREA NITROGEN 24 MG/DL (7-18); BUN/CREATININE RATIO 22.2 (5.4-32.0); CALCIUM 8.3 MG/DL (8.5-10.1); CHLORIDE 105 MMOL/L (99-107); CREATININE 1.08 MG/DL (0.60-1.10); GLUCOSE 104 MG/DL (70-104); POTASSIUM 4.1 MMOL/L (3.5-5.1); SODIUM 137 MMOL/L (135-145); TOTAL CARBON DIOXIDE 23.1 MMOL/L (24-32); eGFR 69 ML/MIN
--- NOTE | 2019-06-14 06:45 | NUR ---
Problems reprioritized. Patient report given, questions answered & plan of care reviewed with Pema RN. bedside report completed. no distress noted.
[2019-06-14] MEDS ORDERED: AMIO200T61 PO ×2 (06:52→12:31)
[2019-06-14] MEDS ORDERED: amiodarone 200mg tablet PO SCH (08:00)
[2019-06-14] MEDS: amiodarone 200mg tablet PO SCH ×2 (08:37→20:06)
[2019-06-14] MEDS: metoprolol tartrate 50mg tablet PO SCH ×2 (08:38→20:05)
[2019-06-14] MEDS: aspirin 325mg tablet, delayed-release (Ecotrin) PO SCH (08:38)
[2019-06-14] MEDS: magnesium Cl slow-release 64mg tablet PO SCH ×2 (08:39→20:07)
[2019-06-14] MEDS: atorvastatin 10mg tablet PO SCH (08:39)
[2019-06-14] MEDS: docusate sod 100mg capsule PO SCH ×2 (08:39→20:06)
[2019-06-14] MEDS: potassium Cl 20 mEq SR tablet PO SCH ×2 (08:40→20:09)
[2019-06-14] MEDS: pantoprazole 40mg Tablet.DR PO SCH (08:45)
--- NOTE | 2019-06-14 13:25 | NUR ---
Reassessment: Pt previously pending discharge however was held d/t pt being a rapid response. Pt went back into A. fib yesterday AM and DC was held again per MD notes. Pt with increasing PO intake, previously 50% however most recent up to 75-100% likely meeting nutrient needs. [facility] 06/11, pt receiving routine Colace. Will continue to follow. Rec: 1. continue heart healthy/NCS diet per MD 2. routine bowel care 3. wt per rx Addendum: 06/14/19 at [address] Amended: Links added.
--- NOTE | 2019-06-14 18:20 | NUR ---
Patient in room MED 316. I have received report from OZ ENRIQUEZ and had the opportunity to ask questions and assume patient care.
[2019-06-14] MEDS: lisinopril 10 MG tablet PO SCH (20:11)
[2019-06-15 05:42] LABS: ANION GAP 8 (8-16); BLOOD UREA NITROGEN 23 MG/DL (7-18); BUN/CREATININE RATIO 21.5 (5.4-32.0); CALCIUM 8.4 MG/DL (8.5-10.1); CHLORIDE 105 MMOL/L (99-107); CREATININE 1.07 MG/DL (0.60-1.10); GLUCOSE 98 MG/DL (70-104); POTASSIUM 4.9 MMOL/L (3.5-5.1); SODIUM 134 MMOL/L (135-145); TOTAL CARBON DIOXIDE 21.2 MMOL/L (24-32); eGFR 70 ML/MIN
--- NOTE | 2019-06-15 06:00 | NUR ---
Problems reprioritized. Patient report given, questions answered & plan of care reviewed with Valeria ENRIQUEZ.
--- NOTE | 2019-06-15 06:06 | NUR ---
Problems reprioritized. Patient report given, questions answered & plan of care reviewed with LORENZO ERNIQUEZ.
[2019-06-15 06:30] VITALS: BP 100/69
--- NOTE | 2019-06-15 06:35 | NUR ---
Patient in room MED 316. I have received report from Nadine ENRIQUEZ and had the opportunity to ask questions and assume patient care.
--- NOTE | 2019-06-15 06:35 | NUR ---
Problems reprioritized. Patient report given, questions answered & plan of care reviewed with [].
[2019-06-15] MEDS: docusate sod 100mg capsule PO SCH (08:00)
[2019-06-15] MEDS: magnesium Cl slow-release 64mg tablet PO SCH (08:03)
[2019-06-15] MEDS: potassium Cl 20 mEq SR tablet PO SCH (08:03)
[2019-06-15] MEDS: aspirin 325mg tablet, delayed-release (Ecotrin) PO SCH (08:03)
[2019-06-15] MEDS: metoprolol tartrate 50mg tablet PO SCH (08:06)
[2019-06-15] MEDS: pantoprazole 40mg Tablet.DR PO SCH (08:06)
[2019-06-15] MEDS: atorvastatin 10mg tablet PO SCH (08:06)
[2019-06-15] MEDS: amiodarone 200mg tablet PO SCH (08:07)
[2019-06-15 11:30] VITALS: BP 107/72
--- NOTE | 2019-06-15 12:13 | NUR ---
Patient escorted out via W/C per [facility] staff without event. here to transport home. Eager to go home. Belongings sent with patient. IV removed, cathlon intact. Tele dc'd. Medications sent to pharmacy.
== END 2019-06-15 12:24 | disposition home health service (06) | DRG 166 ==
LOC: SSTAY O 08:31 → MED 3N 16:44 → ICU 2S 06-07 10:14 → MED 3N 06-09 12:13
PROVIDERS: ADMIT Thoracic Surgery (Cardiothoracic Vascular Surgery); ATTEND Thoracic Surgery (Cardiothoracic Vascular Surgery)
PROC: 4A023N7 Measurement of Cardiac Sampling and Pressure, Left Heart, Percutaneous Approach (ICD-10-PCS; principal; 2019-06-05)
PROC: B2111ZZ Fluoroscopy of Multiple Coronary Arteries using Low Osmolar Contrast (ICD-10-PCS; 2019-06-05)
PROC: B2151ZZ Fluoroscopy of Left Heart using Low Osmolar Contrast (ICD-10-PCS; 2019-06-05)
PROC: B3111ZZ Fluoroscopy of Right Brachiocephalic-Subclavian Artery using Low Osmolar Contrast (ICD-10-PCS; 2019-06-05)
PROC: B41F1ZZ Fluoroscopy of Right Lower Extremity Arteries using Low Osmolar Contrast (ICD-10-PCS; 2019-06-05)
PROC: 021009W Bypass Coronary Artery, One Artery from Aorta with Autologous Venous Tissue, Open Approach (ICD-10-PCS; 2019-06-07)
PROC: 02100Z9 Bypass Coronary Artery, One Artery from Left Internal Mammary, Open Approach (ICD-10-PCS; 2019-06-07)
PROC: B24BZZ4 Ultrasonography of Heart with Aorta, Transesophageal (ICD-10-PCS; 2019-06-07)
PROC: 5A1221Z Performance of Cardiac Output, Continuous (ICD-10-PCS; 2019-06-07)
PROC: 06BQ4ZZ Excision of Left Saphenous Vein, Percutaneous Endoscopic Approach (ICD-10-PCS; 2019-06-07)
PROC: 02HV33Z Insertion of Infusion Device into Superior Vena Cava, Percutaneous Approach (ICD-10-PCS; 2019-06-07)
PROC: 02HP32Z Insertion of Monitoring Device into Pulmonary Trunk, Percutaneous Approach (ICD-10-PCS; 2019-06-07)
PROC: 4A133B3 Monitoring of Arterial Pressure, Pulmonary, Percutaneous Approach (ICD-10-PCS; 2019-06-07)
PROC: 4A1239Z Monitoring of Cardiac Output, Percutaneous Approach (ICD-10-PCS; 2019-06-07)
PROC: 5A2204Z Restoration of Cardiac Rhythm, Single (ICD-10-PCS; 2019-06-12)
DX: I25.119 Atherosclerotic heart disease of native coronary artery with unspecified angina pectoris (principal); I95.9 Hypotension, unspecified; I48.91 Unspecified atrial fibrillation; J44.9 Chronic obstructive pulmonary disease, unspecified; E78.5 Hyperlipidemia, unspecified; I10 Essential (primary) hypertension; I45.10 Unspecified right bundle-branch block; K21.9 Gastro-esophageal reflux disease without esophagitis; R94.39 Abnormal result of other cardiovascular function study; Z82.49 Family history of ischemic heart disease and other diseases of the circulatory system
CPT/HCPCS: 0232T; 36415; 36600; 71045; 71046; 80048; 80053; 81003; 82330; 82435; 82803; 82947; 82948; 83036; 83735; 84100; 84132; 84295; 85018; 85025; 85027; 85347; 85384; 85610; 85730; 86885; 86900; 86901; 86920; 87081; 93005; 93306; 93312; 93325; 93458; 93880; 93970; 94002; 94003; 94010; 94668; 94760; 97116; 97161; 97530; 99152; 99153; A4618; A4620; A6258; A6402; A6446; A6449; A7000; A7048; C1713; C1751; C1760; C1769; C9113; G0378; GO378; J0131; J0171; J0282; J0690; J1265; J1644; J1815; J2001; J2060; J2150; J2250; J2270; J2370; J2405; J2440; J2720; J2765; J2795; J2930; J3010; J3370; J3475; J3480; J3490; J7030; J7040; J7050; J7060; J7120; P9045; Q0163; Q9967